=== PATIENT | female | born 1965 | race Caucasian/White ===

== ENCOUNTER 2016-05-04 16:57 | Emergency (ER) | payer OTHER ==
[~2016-05-04 16:57] MED LIST: LIPITOR40 MG PO; PLAVIX75 MG PO; TOPROL XL 25MG25 MG PO; VOLTAREN **OUT75 MG PO
[2016-05-04 17:35] LABS: BASOPHIL 0.2 % (0-2); EOSINOPHIL 2.1 % (0-5); HCT 44.9 % (37.0-47.0); HGB 15.6 g/dl (12.5-16.0); LYMPHOCYTE 34.5 % (15-48); MCH 29.7 pg (25.0-31.0); MCHC 34.7 g/dL (32.0-36.0); MCV 85.4 fL (78.0-100.0); MONOCYTE 7.8 % (0-12); MPV 10.5 fL (6.0-9.5); NEUTROPHIL 55.4 % (41-80); PLT 221 K/uL (150-400); RBC 5.26 M/uL (4.20-5.40); RDW 14.5 % (11.5-14.0); WBC 9.1 K/uL (4.0-10.5)
[2016-05-04 17:43] LABS: PROTHROMBIN TIME 12.8 SECONDS (11.7-14.0); PTT 28.2 SECONDS (23.2-31.4)
[2016-05-04 17:48] LABS: ALBUMIN 4.3 g/dL (3.5-5.0); BILIRUBIN - TOTAL 0.2 mg/dL (0.1-1.0); CREATININE 0.8 mg/dL (0.5-1.0); GLOBULIN (CALCULATION) 2.8 g/dL (2.2-4.2); MAGNESIUM 1.99 mg/dL (1.40-2.10); POTASSIUM 3.6 mmol/L (3.5-5.1); TOTAL PROTEIN 7.1 g/dL (6.4-8.3)
[2016-05-04 17:50] LABS: CKMB 1.21 ng/mL (0.97-4.94); MYOGLOBIN 27 ng/mL (26-65); PRO-BNP 46 pg/mL (0-125); TROPONIN T < 0.010 ng/mL
== END 2016-05-04 21:23 | disposition home or self-care (01) ==
LOC: FER 16:57
PROVIDERS: Internal Medicine
DX: M94.0 Chondrocostal junction syndrome [Tietze] (principal); I25.2 Old myocardial infarction; I10 Essential (primary) hypertension; F17.210 Nicotine dependence, cigarettes, uncomplicated; Z88.0 Allergy status to penicillin; Z88.6 Allergy status to analgesic agent; Z95.5 Presence of coronary angioplasty implant and graft
CPT/HCPCS: 36415; 71010; 80053; 82550; 82553; 83735; 83874; 83880; 84484; 85025; 85379; 85610; 85730; 93005; J2930

== ENCOUNTER 2020-12-17 09:15 | Emergency (ER) | payer OTHER ==
[~2020-12-17 09:15] MED LIST changes: +ACID CONTROL150 MG PO; +BACTRIM DS TAB1 EACH PO; +CARAFATE S500 MG/TSP PO; +ETODOLAC500 MG PO; +FLEXERIL10 MG PO; +GABAPENTIN600 MG PO; +IBUPROFEN800 MG PO; +LASIX20 MG PO; +LIPITOR20 MG PO; +LOPRESSOR25 MG PO; +NEURONTIN300 MG PO; +PERCOCET 7.5/321 TAB PO; +SENOKOT-S TABL1 EACH PO; +SEROQUEL 25MG T25 MG PO; +TIZANIDINE HCL4 MG PO; +TOPAMAX100 MG PO; +TOPAMAX50 MG PO; +VICODIN ES 7.51 EACH PO
[2020-12-17 10:00] LABS: BASOPHIL 0.5 % (0-2); EOSINOPHIL 1.8 % (0-5); HCT 45.3 % (37.0-47.0); HGB 14.7 g/dl (12.5-16.0); LYMPHOCYTE 32.8 % (15-48); MCH 28.3 pg (25.0-31.0); MCHC 32.5 g/dL (32.0-36.0); MCV 87.3 fL (78.0-100.0); MONOCYTE 7.5 % (0-12); MPV 10.1 fL (6.0-9.5); NEUTROPHIL 56.9 % (41-80); NRBC 0; PLT 249 K/uL (150-400); RBC 5.19 M/uL (4.20-5.40); RDW 13.2 % (11.5-14.0); WBC 6.6 K/uL (4.0-10.5)
[2020-12-17 10:15] LABS: INR 1.02 (0.9-1.2); PROTHROMBIN TIME 12.8 SECONDS (11.8-13.4); PTT 29.3 SECONDS (24.4-34.7)
[2020-12-17 10:17] LABS: D-DIMER 0.35 ug/mLFEU (0.00-0.41)
[2020-12-17 10:33] LABS: PRO-BNP 30 pg/mL (<125)
[2020-12-17 11:12] LABS: ALBUMIN 3.4 g/dL (3.4-5.0); BILIRUBIN - TOTAL 0.2 mg/dL (0.2-1.0); CREATININE 0.63 mg/dL (0.51-0.95); GLOBULIN (CALCULATION) 3.4 g/dL; POTASSIUM 4.4 mmol/L (3.5-5.1); TOTAL PROTEIN 6.8 g/dL (6.4-8.2)
== END 2020-12-17 12:05 | disposition left against medical advice (07) ==
LOC: FER 09:15
PROVIDERS: Emergency Medicine
DX: R07.89 Other chest pain (principal); I25.2 Old myocardial infarction; I10 Essential (primary) hypertension; Z88.0 Allergy status to penicillin; Z88.6 Allergy status to analgesic agent; Z87.891 Personal history of nicotine dependence; Z53.8 Procedure and treatment not carried out for other reasons; Z20.822 Contact with and (suspected) exposure to COVID-19
CPT/HCPCS: 36415; 71045; 80053; 83880; 84484; 85025; 85379; 85610; 85730; 93005; U0002

== ENCOUNTER 2021-07-18 23:20 | Emergency (ER) | payer OTHER ==
[~2021-07-18 23:20] MED LIST changes: +ONDANSETRON ODT4 MG PO; +PREDNISONE 20MG20 MG PO; +VENTOLIN HFA IN18 GM INH
[2021-07-18 23:48] LABS: BASOPHIL 0.5 % (0-2); EOSINOPHIL 1.9 % (0-5); HCT 44.5 % (37.0-47.0); HGB 14.9 g/dl (12.5-16.0); LYMPHOCYTE 33.2 % (15-48); MCH 28.8 pg (25.0-31.0); MCHC 33.5 g/dL (32.0-36.0); MCV 85.9 fL (78.0-100.0); MONOCYTE 6.7 % (0-12); MPV 10.1 fL (6.0-9.5); NEUTROPHIL 57.3 % (41-80); NRBC 0; PLT 221 K/uL (150-400); RBC 5.18 M/uL (4.20-5.40); RDW 12.6 % (11.5-14.0); WBC 10.1 K/uL (4.0-10.5)
[2021-07-19 00:10] LABS: ALBUMIN 3.2 g/dL (3.4-5.0); BILIRUBIN - TOTAL 0.4 mg/dL (0.2-1.0); BUN/CREAT RATIO (CALC) 19.7 RATIO; CREATININE 0.66 mg/dL (0.51-0.95); GLOBULIN (CALCULATION) 3.7 g/dL; POTASSIUM 3.9 mmol/L (3.5-5.1); TOTAL PROTEIN 6.9 g/dL (6.4-8.2)
[2021-07-19 00:53] LABS: CORONAVIRUS 2019 SARS-COV-2 NEGATIVE (NEGATIVE); INFLUENZA A NAA NEGATIVE (NEGATIVE)
== END 2021-07-19 03:51 | disposition home or self-care (01) ==
LOC: FER 23:20
PROVIDERS: Internal Medicine
DX: R07.89 Other chest pain (principal); R11.0 Nausea; R06.02 Shortness of breath; R00.0 Tachycardia, unspecified; I25.2 Old myocardial infarction; I10 Essential (primary) hypertension; Z20.822 Contact with and (suspected) exposure to COVID-19; Z28.310 Unvaccinated for COVID-19; Z86.73 Personal history of transient ischemic attack (TIA), and cerebral infarction without residual deficits; Z95.5 Presence of coronary angioplasty implant and graft; Z87.891 Personal history of nicotine dependence; Z88.0 Allergy status to penicillin; Z88.6 Allergy status to analgesic agent; Z79.899 Other long term (current) drug therapy
CPT/HCPCS: 36415; 71045; 80053; 83690; 83880; 84145; 84484; 85025; 93005; 94640; 94664; J1170; J2405; U0002

== ENCOUNTER 2021-08-14 13:26 | Emergency (ER) | payer OTHER ==
[2021-08-14] MEDS ORDERED: TIZANIDINE HCL4 MG PO (15:12)
[2021-08-14] MEDS ORDERED: OXYCODONE-ACET1 EAC1 PO (15:12)
[2021-08-14] MEDS ORDERED: CETIRIZINE HCL10 MG PO (15:12)
[2021-08-14] MEDS ORDERED: POTASSIUM CHLO20 ME2 PO (15:13)
== END 2021-08-14 17:30 | disposition home or self-care (01) ==
LOC: FER 13:26
DX: R60.0 Localized edema (principal); Z88.6 Allergy status to analgesic agent; Z88.0 Allergy status to penicillin; Z28.310 Unvaccinated for COVID-19
CPT/HCPCS: 93971

== ENCOUNTER 2021-10-04 19:34 | Emergency (ER) | payer OTHER ==
[~2021-10-04 19:34] MED LIST changes: +CETIRIZINE HCL10 MG PO; +OXYCODONE-ACET1 EAC1 PO; +POTASSIUM CHLO20 ME2 PO
[2021-10-04 22:17] LABS: BASOPHIL 0.5 % (0-2); EOSINOPHIL 2.3 % (0-5); HCT 44.9 % (37.0-47.0); HGB 14.9 g/dl (12.5-16.0); LYMPHOCYTE 42.8 % (15-48); MCH 28.8 pg (25.0-31.0); MCHC 33.2 g/dL (32.0-36.0); MCV 86.8 fL (78.0-100.0); MONOCYTE 8.6 % (0-12); MPV 10.8 fL (6.0-9.5); NEUTROPHIL 45.1 % (41-80); NRBC 0; PLT 247 K/uL (150-400); RBC 5.17 M/uL (4.20-5.40); RDW 13.2 % (11.5-14.0); WBC 8.2 K/uL (4.0-10.5)
[2021-10-04 22:21] LABS: INR 0.98 (0.9-1.2); PROTHROMBIN TIME 12.7 SECONDS (11.9-13.9)
[2021-10-04 22:22] LABS: PTT 27.9 SECONDS (24.9-34.6)
[2021-10-04 22:36] LABS: ALBUMIN 3.4 g/dL (3.4-5.0); BILIRUBIN - TOTAL 0.2 mg/dL (0.2-1.0); CREATININE 0.69 mg/dL (0.51-0.95); GLOBULIN (CALCULATION) 3.6 g/dL; POTASSIUM 3.6 mmol/L (3.5-5.1)
== END 2021-10-04 22:22 | disposition left against medical advice (07) ==
LOC: FER 19:34
PROVIDERS: Internal Medicine
DX: M79.672 Pain in left foot (principal); R20.0 Anesthesia of skin; R06.02 Shortness of breath; R22.42 Localized swelling, mass and lump, left lower limb; Z53.29 Procedure and treatment not carried out because of patient's decision for other reasons; Z28.310 Unvaccinated for COVID-19; Z88.0 Allergy status to penicillin; Z88.5 Allergy status to narcotic agent; Z88.6 Allergy status to analgesic agent
CPT/HCPCS: 36415; 80053; 83605; 84145; 84484; 85025; 85610; 85730; 93005